=== PATIENT | male | born 1965 | race Caucasian/White ===

== ENCOUNTER 2021-11-26 07:01 | Outpatient (CLI) | payer OTHER, SELFPAY ==
[2021-12-11 09:26] LABS: Potassium 4.1 mmol/L (3.4-5.0); Sodium 137 mmol/L (137-145)
[2021-12-11 09:27] LABS: Alanine Aminotransferase 49 U/L (6-50); Albumin Level 4.2 g/dL (3.5-5.1); Alkaline Phosphatase 63 U/L (38-126); Anion Gap 7 mmol/L (8-16); Aspartate Amino Transferase 37 U/L (17-59); Bilirubin,Total 0.3 mg/dL (0.2-1.3); Blood Urea Nitrogen 16 mg/dL (9-20); Calcium 9.1 mg/dL (8.4-10.2); Carbon Dioxide 27 mmol/L (22-30); Chloride 103 mmol/L (98-107); Estimated Glomerular Filt Rate > 60; Glucose 97 mg/dL (65-110)
== END 2021-11-26 07:02 | disposition home or self-care (01) ==
LOC: ANHLAB 07:06
PROVIDERS: PCP Student in an Organized Health Care Education/Training Program; Visit Provider Student in an Organized Health Care Education/Training Program
DX: R74.8 Abnormal levels of other serum enzymes (principal); Z13.29 Encounter for screening for other suspected endocrine disorder; Z13.0 Encounter for screening for diseases of the blood and blood-forming organs and certain disorders involving the immune mechanism; Z13.228 Encounter for screening for other metabolic disorders
CPT/HCPCS: 36415; 80053; 84443

== ENCOUNTER 2023-06-09 14:39 | Emergency (ER) | payer OTHER, SELFPAY ==
[2023-06-09 14:49] VITALS: BP 153/99; PULSE 70; RESP 18; TEMP 36.4; O2SAT 100
--- NOTE | 2023-06-09 16:38 | PC.NURSE ---
called patient from waiting room, no answer
== END 2023-06-09 18:01 | disposition left against medical advice (07) ==
LOC: ANHED 16:42
PROVIDERS: PCP Student in an Organized Health Care Education/Training Program
DX: L29.9 Pruritus, unspecified (principal)
CPT/HCPCS: 99199

== ENCOUNTER 2025-01-15 13:00 | Emergency (ER) | payer OTHER, SELFPAY ==
[2025-01-15 13:25] VITALS: BP 142/78; PULSE 67; RESP 20; TEMP 36.4; O2SAT 100
--- NOTE | 2025-01-15 13:43 | ED.WOUNDLAC ---
HPI - Wound/Laceration General Chief Complaint: Wound/Laceration Stated Complaint: Skin Irritation Time Seen by Provider: 01/15/25 13:46 Source: patient, RN notes reviewed and old records reviewed Mode of arrival: ambulatory Limitations: no limitations History of Present Illness HPI narrative: 59-year-old male presents to the [facility] with a less than 1 cm scratch that occurred on Wednesday, 2 days ago while climbing in the attic. States that he scratched it on a nail. No erythema or ecchymosis noted. Patient's concern for his tetanus. Last tetanus was 6-7 years ago Has applied Neosporin Related Data Home Medications ?Medication ?Instructions ?Recorded ?Confirmed ?Last Taken ?Type rosuvastatin 5 mg tablet mg 01/15/25 Unknown History Allergies Allergy/AdvReac Type Severity Reaction Status Date / Time simvastatin (From Zocor) AdvReac Other Verified 01/15/25 13:31 Review of Systems Review of Systems: All systems reviewed & are unremarkable except as noted in HPI and below Constitutional: Constitutional: Reports no additional constitutional complaints Musculoskeletal: Musculoskeletal: Reports no additional musculoskeletal complaints PMFSH Comments At the time of my signature, I reviewed and agree with the nursing past medical, surgical, social, and family history. There is no relevant family history pertinent to the patient complaint. Exam Const: General: cooperative, healthy appearing, comfortable, no acute distress, well developed, alert and well nourished Nutritional Appearance: well nourished Orientation/consciousness: patient oriented x3 Limitations: no limitations HENMT: Head: normal to inspection Eyes: General: appearance normal, both eyes and all related structures Alignment and Position: alignment normal Neck: Neck: normal visual inspection, full ROM, no lymphadenopathy and no meningeal signs Chest: Chest palpation & inspection: normal inspection of the chest Resp: Effort & Inspection: normal respiratory effort and able to speak in complete sentences Auscultation: clear to auscultation bilaterally, no crackles, no rales, no rhonchi and no wheezes Cardio: Rate: regular rate Skin: General skin exam: normal color Full body images:  1. 0.7 cm scratch without erythema, ecchymosis. Neuro: General: patient oriented x3, gait normal, moves all extremities and no meningeal signs Cognition (Neuro): normal cognition Speech: normal speech Gait exam (Neuro): Normal gait present Extrem: General: normal to inspection, full ROM, capillary refill normal and normal gait Psych: Appearance: grossly normal and well kempt Mental Status: mental status grossly normal Speech and movement: Normal speech and movement present and Clear speech present Affect: normal affect Attitude: cooperative Course Course Level of Care: Express Care Visit Vital Signs Vital signs: Vital Signs Temperature 97.5 F L 01/15/25 13:25 Pulse Rate 67 01/15/25 13:25 Respiratory Rate 20 01/15/25 13:25 Blood Pressure 142/78 H 01/15/25 13:25 Pulse Oximetry 100 01/15/25 13:25 Oxygen Delivery Room Air 01/15/25 13:25 Temperature 97.5 F L 01/15/25 13:25 Pulse Rate 67 01/15/25 13:25 Respiratory Rate 20 01/15/25 13:25 Blood Pressure 142/78 H 01/15/25 13:25 Pulse Oximetry 100 01/15/25 13:25 Oxygen Delivery Room Air 01/15/25 13:25 Reviewed MDM - Wound/Laceration MDM Narrative Medical decision making narrative: Patient sitting in exam room. Patient is nontoxic, vitals stable. Patient presents with a scratch to the posterior neck. Patient also concerned he needs his tetanus shot updated. Tetanus is updated Patient appropriate for outpatient treatment and follow-up Discharge instructions reviewed with patient, as well as provided in writing per nursing staff. The instructions also include specific and strict return/GO TO THE ER as well as f/u information. All questions have been answered, and the patient deny any further questions with discharge and discharge plan. Some parts of this dictation were generated by voice recognition software and may contain typographical and/or grammatical inaccuracies. Differential Diagnosis Differential diagnosis: Likely laceration, abscess, abrasion and avulsion of skin Critical Care Time Critical Care Time Critical Care Time: No Discharge Plan Discharge Clinical Impression: Abrasion, Vaccine for [id number], combined Patient Disposition: Home Condition: Stable Instructions: Abrasion (ED) Additional Instructions: Keep area clean and dry. Wash twice a day with warm soapy water, pat dry. Apply scant amount of either bacitracin or Neosporin. You were updated with your tetanus today Follow-up with primary care provider. Today your blood pressure was 142/78 Patient Language: Bulgarian Prescriptions: No Action rosuvastatin 5 mg tablet Follow-up/Referrals: Reji,DO Laci [Primary Care Provider] - 1 Week ([facility] care follow up ) Time of Disposition: 14:01
[2025-01-15] MEDS: TETANUS,DIPHTHERIA,AC PERTUSSIS ADULT (0.5 ML) BOOSTRIX IM (14:02)
== END 2025-01-15 14:06 | disposition home or self-care (01) ==
PROVIDERS: Emergency Provider Nurse Practitioner; PCP Student in an Organized Health Care Education/Training Program
DX: S10.91XA Abrasion of unspecified part of neck, initial encounter (principal); W45.0XXA Nail entering through skin, initial encounter; E78.00 Pure hypercholesterolemia, unspecified
CPT/HCPCS: 90471; 90715; 99212; G0463